=== PATIENT | female | born 1950 | race Caucasian/White ===

== ENCOUNTER 2016-11-21 09:44 | Outpatient (CLI) | payer OTHER, MEDICARE | END 2016-11-21 19:00 | disposition home or self-care (01) | LOC: SMA 09:44 | PROVIDERS: ATTEND Obstetrics & Gynecology Gynecology | DX: Z12.31 Encounter for screening mammogram for malignant neoplasm of breast (principal) | CPT/HCPCS: 77067; G0202 ==

== ENCOUNTER → 2018-10-04 | Outpatient (CLI) | payer OTHER, MEDICARE | END | disposition home or self-care (01) | LOC: SMA 08:02 | PROVIDERS: ATTEND Obstetrics & Gynecology Gynecology | DX: Z12.31 Encounter for screening mammogram for malignant neoplasm of breast (principal) | CPT/HCPCS: 77067 ==

== ENCOUNTER 2018-10-07 16:08 | Emergency (ER) | payer OTHER, MEDICARE ==
[~2018-10-07] VITALS: Ht 165.1 cm; Wt 59.9 kg
[2018-10-07 16:15] VITALS: BP_SYST 139
[2018-10-07] MEDS ORDERED: LORazepam 2 MG/ML VIAL (FOR ER USE) IVP ONE (16:30)
[2018-10-07] MEDS ORDERED: NACL 0.9% 1,000 ML IV ONE (18:21)
[2018-10-07 19:13] LABS: BASOPHILS % (AUTO) 0.5 % (0.0-2.0); EOSINOPHILS # (AUTO) 0.1 K/uL (0.0-0.4); EOSINOPHILS % (AUTO) 1.1 % (0.0-4.0); HEMATOCRIT 34.8 % (36-48); HEMOGLOBIN 12.1 g/dL (12.0-16.0); LYMPHOCYTES % (AUTO) 15.3 % (20.5-51.5); MEAN CORPUSCULAR HEMOGLOBIN 33 pg (27-31); MEAN CORPUSCULAR HGB CONC 35 % (32-36); MEAN CORPUSCULAR VOLUME 95 fL (79.0-98.0); MONOCYTES # (AUTO) 0.3 K/uL (0.0-1.0); MONOCYTES % (AUTO) 4.4 % (1.7-9.3); NEUTROPHILS # (AUTO) 5.1 K/uL (1.8-7.7); NEUTROPHILS % (AUTO) 78.7 % (40.0-70.0); PLATELET COUNT (AUTO) 190 K/uL (130-430); RED BLOOD CELL COUNT(AUTO) 3.66 MIL/uL (4.2-6.2); WHITE BLOOD COUNT (AUTO) 6.5 K/uL (4.8-10.8)
[2018-10-07 19:32] LABS: CALCIUM 8.5 mg/dL (8.4-11.0); CREATININE 0.61 mg/dL (0.55-1.30); POTASSIUM 3.4 mmol/L (3.5-5.1)
[2018-10-07 19:37] LABS: ALBUMIN 3.3 g/dL (3.4-4.8)
[2018-10-07 19:39] LABS: PROTHROMBIN TIME 9.9 SECS (9.5-12.5)
[2018-10-07 20:29] VITALS: BP_SYST 131
== END 2018-10-07 20:29 | disposition home or self-care (01) ==
LOC: SED 16:08
DX: T18.128A Food in esophagus causing other injury, initial encounter (principal); Z90.49 Acquired absence of other specified parts of digestive tract; Z91.040 Latex allergy status; R06.02 Shortness of breath; X58.XXXA Exposure to other specified factors, initial encounter; Y93.89 Activity, other specified; Y92.89 Other specified places as the place of occurrence of the external cause; Y99.8 Other external cause status
CPT/HCPCS: 36415; 71045; 80053; 83690; 85025; 85610; 85730; 96374; 99284; J2060; J7030

== ENCOUNTER 2020-03-03 08:30 | Outpatient (CLI) | payer OTHER ==
[2020-03-03] MEDS ORDERED: BARIUM SULFATE 135 ML SUSP.RECON (E-Z-HD) PO ONE (09:29)
== END 2020-03-03 21:02 | disposition home or self-care (01) ==
LOC: SRD 08:30
PROVIDERS: ATTEND Obstetrics & Gynecology Gynecology
DX: Z12.31 Encounter for screening mammogram for malignant neoplasm of breast (principal); R13.12 Dysphagia, oropharyngeal phase
CPT/HCPCS: 74220-TC; 77067

== ENCOUNTER 2023-02-17 10:01 | Outpatient (CLI) | payer OTHER, BC | END 2023-02-17 20:36 | disposition home or self-care (01) | LOC: SMA 10:01 | PROVIDERS: ATTEND Obstetrics & Gynecology Gynecology | DX: Z12.31 Encounter for screening mammogram for malignant neoplasm of breast (principal) | CPT/HCPCS: 77067 ==

== ENCOUNTER 2023-02-27 07:56 | Outpatient (CLI) | payer OTHER, BC | END 2023-02-27 18:33 | disposition home or self-care (01) | LOC: SUS 07:56 | PROVIDERS: ATTEND Obstetrics & Gynecology Gynecology | DX: N63.12 Unspecified lump in the right breast, upper inner quadrant (principal); N63.21 Unspecified lump in the left breast, upper outer quadrant; R92.2 Inconclusive mammogram | CPT/HCPCS: 76641 ==

== ENCOUNTER 2023-09-05 11:54 | Emergency (ER) | payer OTHER, BC ==
[~2023-09-05] VITALS: Ht 157.5 cm; Wt 59.9 kg
[2023-09-05 12:42] VITALS: BP_SYST 169; PULSE 68; RESP 18; TEMP 97.4; O2SAT 98
[2023-09-05] MEDS ORDERED: NABU-140 PO (14:05)
[2023-09-05 14:35] VITALS: BP_SYST 152; PULSE 68; RESP 18; TEMP 97.4; O2SAT 98
== END 2023-09-05 14:35 | disposition home or self-care (01) ==
LOC: SED 11:54
DX: S20.211A Contusion of right front wall of thorax, initial encounter (principal); Z91.040 Latex allergy status; Z79.899 Other long term (current) drug therapy; V89.2XXA Person injured in unspecified motor-vehicle accident, traffic, initial encounter; Y93.89 Activity, other specified; Y92.89 Other specified places as the place of occurrence of the external cause; Y99.8 Other external cause status
CPT/HCPCS: 71100; 99283